=== PATIENT | male | born 1960 | race Caucasian/White ===

== ENCOUNTER 2021-06-27 09:18 | Emergency (ER) | payer OTHER ==
[~2021-06-27] VITALS: Ht 180.3 cm; Wt 65.9 kg
[2021-06-27] MEDS ORDERED: DILT180C70 (09:40)
[2021-06-27] MEDS ORDERED: ATOR1TAB21 (09:40)
--- NOTE | 2021-06-27 11:48 | REP ---
INDICATION: right groin pain r/o hernia. COMPARISON: None. TECHNIQUE: Real-time sonographic evaluation of inguinal regions performed. FINDINGS: There is a small non reducible fat containing right inguinal hernia extending into the proximal inguinal canal. No bowel is seen in the hernia sac. The defect is 15 mm at rest and 17 mm with Valsalva maneuver. No left inguinal hernia is seen. IMPRESSION: Small fat containing non reducible right inguinal hernia extending into the proximal right inguinal canal. No left inguinal hernia. <Electronically signed by Shaheed Baldwin > 06/27/21 1145
[2021-06-27] MEDS ORDERED: diltiaZEM **CD** 180 MG CAP PO ONE (12:15)
[2021-06-27 12:41] VITALS: BP 190/100
[2021-06-27 13:00] VITALS: BP 190/98
== END 2021-06-27 13:27 | disposition home or self-care (01) ==
LOC: M ED 09:18
DX: K40.30 Unilateral inguinal hernia, with obstruction, without gangrene, not specified as recurrent (principal); I10 Essential (primary) hypertension; E78.5 Hyperlipidemia, unspecified; J44.9 Chronic obstructive pulmonary disease, unspecified; F17.200 Nicotine dependence, unspecified, uncomplicated

== ENCOUNTER → 2021-10-27 | Outpatient (CLI) | payer BC ==
[~2021-10-27] MED LIST: ATOR1TAB21; DILT180C70; TIOT18INH INH
--- NOTE | 2021-10-27 10:46 | REP ---
INDICATION: HIGH BLOOD PRESSURE. COMPARISON: No comparison chest x-ray. TECHNIQUE: Two views.. FINDINGS: The lungs are somewhat hyperinflated consistent with some degree of COPD. The pleural angles are sharp. Heart size is normal. There is a irregular opacity in the right lung apex which has somewhat nodular features possibly even cavitary changes. In addition, there is a pleural based spiculated opacity in the left mid lung zone. Neoplastic pulmonary disease should be excluded. Recommend chest CT, preferably with IV contrast. There are old healed rib fractures on the right. No acute bony abnormality is seen. Vascular calcification is seen in the distribution of the carotid arteries bilaterally in the soft tissues of the neck. IMPRESSION: Abnormal nodular opacity right lung apex and left mid lung zone. Recommend, preferably with IV contrast. Chest CT <Electronically signed by Pavel Thomas > 10/27/21 1046
[2021-10-27 11:12] LABS: HEMOGLOBIN 13.5 g/dl (13.5-17.5); MEAN CORPUSCULAR HEMOGLOBIN 33.3 pg (27.0-33.0); MEAN CORPUSCULAR HGB CONC 32.9 g/dl (32.0-36.5); MEAN CORPUSCULAR VOLUME 101.2 fl (80.0-96.0); PLATELET COUNT, AUTOMATED 346 10^3/uL (150-450); RED BLOOD COUNT 4.05 10^6/uL (4.30-6.10); WHITE BLOOD COUNT 9.4 10^3/uL (4.0-10.0)
[2021-10-27 11:38] LABS: ALBUMIN 3.7 GM/DL (3.2-5.2); ALT/SGPT 26 U/L (12-78); BILIRUBIN,TOTAL 0.3 MG/DL (0.2-1.0); BLOOD UREA NITROGEN 14 MG/DL (7-18); CALCIUM LEVEL 9.3 MG/DL (8.8-10.2); CARBON DIOXIDE LEVEL 29 MEQ/L (21-32); CHLORIDE LEVEL 102 MEQ/L (98-107); CREATININE FOR GFR 0.95 MG/DL (0.70-1.30); GLOMERULAR FILTRATION RATE > 60.0 (>49); GLUCOSE, FASTING 96 MG/DL (70-100); POTASSIUM SERUM 4.7 MEQ/L (3.5-5.1); SODIUM LEVEL 135 MEQ/L (136-145); TOTAL PROTEIN 8.1 GM/DL (6.4-8.2)
--- NOTE | 2021-10-27 20:03 | ECGEPIP ---
[facility] Test Date: 2021-10-27 Pat Name: SMITH MCKAY Department: Room: - Gender: Male [employer] Supervisor: RF : [id number] Requested By: Raoul Whitmore Order Number: [id number] Reading MD: Baltazar Haynes Measurements Intervals [place] Rate: 88 P: 80 OK: 144 QRS: -33 QRSD: 108 T: 60 QT: 374 QTc: 452 Interpretive Statements Normal sinus rhythm Biatrial enlargement Left axis deviation Nonspecific ST-T wave abnormalities Baseline artifact Comparison tracing not on file Electronically Signed on 10-27-2021 20:03:13 EST by Baltazar Haynes
== END ==
LOC: M RAD 10:05
PROVIDERS: ATTEND Anesthesiology
DX: Z01.818 Encounter for other preprocedural examination (principal); R91.1 Solitary pulmonary nodule; R94.31 Abnormal electrocardiogram [ECG] [EKG]; I10 Essential (primary) hypertension; E78.00 Pure hypercholesterolemia, unspecified; J44.9 Chronic obstructive pulmonary disease, unspecified; Z86.73 Personal history of transient ischemic attack (TIA), and cerebral infarction without residual deficits

== ENCOUNTER → 2021-10-27 | Outpatient (CLI) | payer BC, OTHER | LOC: M LABSMTC 09:35 | PROVIDERS: ATTEND Anesthesiology | DX: Z01.812 Encounter for preprocedural laboratory examination (principal); Z20.822 Contact with and (suspected) exposure to COVID-19 ==

== ENCOUNTER 2021-11-01 14:13 | Day surgery (SDC) | payer BC ==
[~2021-11-01] VITALS: Ht 180.3 cm; Wt 57.6 kg
[~2021-11-01 14:13] MED LIST changes: +LIDOCAINE 1% MDV 20ML VIAL SQ PRN; +LR 1,000 ML IV ONE
[2021-11-01] MEDS ORDERED: ROCURONIUM BROMIDE 50 MG/5 ML VIAL As Ordered ONE (16:33)
[2021-11-01] MEDS ORDERED: SUGAMMADEX SODIUM 500 MG/5 ML VIAL (BRIDION) As Ordered ONE (16:33)
[2021-11-01] MEDS ORDERED: ACETAMINOPHEN 1000MG 100ML IV BTL (OFIRMEV) (J0131 PER 10MG) As Ordered ONE (16:33)
[2021-11-01] MEDS ORDERED: KETOROLAC 60MG 2ML VIAL As Ordered ONE (16:33)
[2021-11-01] MEDS ORDERED: propofoL 200 MG/20 ML VIAL As Ordered ONE (16:33)
[2021-11-01] MEDS ORDERED: ONDANSETRON 4MG/2ML VIAL As Ordered ONE (16:33)
[2021-11-01] MEDS ORDERED: LIDOCAINE 2% 100MG/5ML SDV (FOR ANES.) As Ordered ONE (16:33)
[2021-11-01] MEDS ORDERED: dexameTHASONE 4 MG/ML 1ML VIAL (J1100 PER 1MG) As Ordered ONE (16:33)
[2021-11-01] MEDS ORDERED: MIDAZOLAM INJ 2MG/2ML VIAL (J2250 PER 1MG) As Ordered ONE (16:34)
[2021-11-01] MEDS ORDERED: fentaNYL 100 MCG/2 ML INJECTION As Ordered ONE ×2 (16:34→18:58)
[2021-11-01] MEDS ORDERED: BUPIVACAINE HCL 0.25% 30ML VIAL As Ordered ONE (17:43)
[2021-11-01] MEDS ORDERED: ePHEDrine SULFATE 25 MG/5 ML(5MG/ML) SYRINGE As Ordered ONE (18:24)
[2021-11-01] MEDS ORDERED: METOCLOPRAMIDE INJ 10MG/2ML VIAL (J2765 PER 1) IV PRN (20:00)
[2021-11-01] MEDS ORDERED: ONDANSETRON 4MG/2ML VIAL IV PRN (20:00)
[2021-11-01] MEDS ORDERED: PERCOCET 5MG/325MG TAB PO PRN (20:00)
[2021-11-01] MEDS ORDERED: LR 1,000 ML IV SCH (20:00)
[2021-11-01] MEDS ORDERED: fentaNYL 100 MCG/2 ML INJECTION IV PRN (20:00)
[2021-11-01 20:25] VITALS: BP 177/88
== END 2021-11-01 21:23 | disposition home or self-care (01) ==
LOC: M SDC 14:13
PROVIDERS: ATTEND Surgery
DX: K40.90 Unilateral inguinal hernia, without obstruction or gangrene, not specified as recurrent (principal); I10 Essential (primary) hypertension; E78.5 Hyperlipidemia, unspecified; Z86.73 Personal history of transient ischemic attack (TIA), and cerebral infarction without residual deficits; J44.9 Chronic obstructive pulmonary disease, unspecified; R06.83 Snoring; R06.02 Shortness of breath; F17.210 Nicotine dependence, cigarettes, uncomplicated; Z79.899 Other long term (current) drug therapy
CPT/HCPCS: 49650; C1781; J0131; J1100; J1885; J2250; J2405; J3010; S2900

== ENCOUNTER → 2021-11-21 | Outpatient (CLI) | payer BC ==
[~2021-11-21] MED LIST changes: +ISOVUE-370 76% 100ML VIAL ONE; -LIDOCAINE 1% MDV 20ML VIAL SQ PRN; -LR 1,000 ML IV ONE
--- NOTE | 2021-11-21 10:15 | REP ---
INDICATION: OTHER NON SPECIFIC ABDNORMAL FINDING OF LUNG FIELD COMPARISON: There are no prior CTs for comparison. Previous plain film examination of the chest 11/06/2021 reviewed. TECHNIQUE: Standard helical technique before and after intravenous contrast administration. 100 cc Isovue 370 was administered. FINDINGS: There is an 8 mm sized precarinal lymph node. There is no donta mediastinal or hilar adenopathy. There are no pleural or pericardial effusions. The imaged upper abdomen and imaged osseous structures are within normal limits. Evaluation of the lung craig shows an irregular somewhat spiculated partially centrally calcified 2.7 x 1.7 x 2.8 cm sized nodule in the right lung apex and with some evidence of cavitation. Calcific pleural plaquing is also seen in the right lung apex. There is pleural irregularity with spiculation seen along the lateral pleural surface of the lingula. Overall this area measures approximately 7 x 6.5 x 1.5 cm. There is advanced emphysematous change seen particularly in the apical regions with large pleural blebs. There is evidence of honeycomb lung formation in the lower lobe region bilaterally. IMPRESSION: 1. Abnormal right apical nodule as described above. Infectious versus neoplastic change. Tuberculosis can present itself in this matter. According to the revised Fleischner society criteria PET-CT is recommended at this time since are no priors for comparison. 2. Irregular pleural based soft tissue density in the apical region as described above. This should also be evaluated with PET-CT since there are no priors comparison. 3. Advanced chronic lung field changes as described above. <Electronically signed by Eugene Fallon > 11/21/21 1012
== END ==
LOC: M PLAIMG 08:46
PROVIDERS: ATTEND Surgery
DX: R91.1 Solitary pulmonary nodule (principal); J98.4 Other disorders of lung

== ENCOUNTER → 2022-03-12 | Outpatient (CLI) | payer BC ==
[~2022-03-12] MED LIST changes: -ISOVUE-370 76% 100ML VIAL ONE
== END ==
LOC: M PLAIMG 10:21
PROVIDERS: ATTEND Internal Medicine Pulmonary Disease
DX: R91.8 Other nonspecific abnormal finding of lung field (principal)

== ENCOUNTER → 2022-09-16 | Outpatient (CLI) | payer BC | LOC: M PLAIMG 08:39 | PROVIDERS: ATTEND Internal Medicine Pulmonary Disease | DX: R91.8 Other nonspecific abnormal finding of lung field (principal) ==

== ENCOUNTER → 2023-04-01 | Outpatient (CLI) | payer OTHER | LOC: M RAD 13:53 | PROVIDERS: ATTEND Internal Medicine Pulmonary Disease | DX: R91.8 Other nonspecific abnormal finding of lung field (principal) ==

== ENCOUNTER → 2023-11-11 | Outpatient (CLI) | payer OTHER | LOC: M RAD 16:27 | PROVIDERS: ATTEND Internal Medicine Pulmonary Disease | DX: R91.8 Other nonspecific abnormal finding of lung field (principal) ==

== ENCOUNTER 2024-06-09 07:13 | Observation (INO) | payer OTHER ==
[~2024-06-09] VITALS: Ht 180.3 cm; Wt 54.4 kg
[2024-06-09] VITALS (8 sets, daily range): BP systolic 108–154; BP diastolic 72–79; TEMP 97.3–97.9; O2SAT 93–99
[~2024-06-09 07:13] MED LIST changes: -ATOR1TAB21; +ATOR1TAB21 PO; +BREO1INH INH; -DILT180C70; +DILT180C70 PO
[2024-06-09] MEDS ORDERED: propofoL 500 MG/50 ML VIAL As Ordered ONE (07:40)
[2024-06-09] MEDS ORDERED: ACETAMINOPHEN 1000MG 100ML IV BAG As Ordered ONE (07:41)
[2024-06-09] MEDS ORDERED: MIDAZOLAM INJ 2MG/2ML VIAL As Ordered ONE (07:45)
[2024-06-09] MEDS ORDERED: fentaNYL 100 MCG/2 ML INJECTION As Ordered ONE (07:46)
[2024-06-09] MEDS ORDERED: ROCURONIUM BROMIDE 50MG/5ML VIAL As Ordered ONE (08:30)
[2024-06-09] MEDS ORDERED: PHENYLephrine 500MCG 5ML (100MCG/ML) SYRINGE As Ordered ONE (08:53)
[2024-06-09] MEDS ORDERED: ePHEDrine SULFATE 25 MG/5 ML(5MG/ML) SYRINGE As Ordered ONE (08:53)
[2024-06-09] MEDS ORDERED: ONDANSETRON 4MG 2ML VIAL As Ordered ONE (08:54)
[2024-06-09] MEDS: TRANEXAMIC ACID 100 MG/ML 10ML VIAL As Ordered ONE (08:55)
[2024-06-09] MEDS: ceFAZolin SOD 2 GM in IV 1 EA IV ONE (09:00)
[2024-06-09] MEDS ORDERED: SUGAMMADEX SODIUM 500 MG/5 ML VIAL (BRIDION) As Ordered ONE (09:07)
[2024-06-09] MEDS ORDERED: LIDOCAINE 2% 100MG/5ML SDV (FOR ANES.) As Ordered ONE (09:07)
[2024-06-09] MEDS: VANCOMYCIN 1000MG/20ML VIAL As Ordered ONE (09:44)
[2024-06-09] MEDS: ROPIVA 100MG/KETOR 15MG/EPINEPHRINE 0.3MG IN NS 50ML SYRINGE PA ONE (09:47)
[2024-06-09] MEDS ORDERED: PHENYLEPHRINE 10MG/ML 1ML VIAL As Ordered ONE (09:51)
[2024-06-09] MEDS ORDERED: HYDROmorphone HCL 2MG/ML 1ML VIAL As Ordered ONE (10:39)
[2024-06-09] MEDS ORDERED: KETOROLAC 60MG 2ML VIAL As Ordered ONE (10:51)
[2024-06-09] MEDS ORDERED: fentaNYL 100 MCG/2 ML INJECTION IV PRN (10:55)
[2024-06-09] MEDS ORDERED: ONDANSETRON 4MG 2ML VIAL IV PRN (10:55)
[2024-06-09] MEDS ORDERED: MEPERIDINE 25 MG/ML 1ML VIAL IV PRN (10:55)
[2024-06-09] MEDS ORDERED: oxyCODONE 5MG TAB PO PRN (10:55)
[2024-06-09] MEDS ORDERED: METOCLOPRAMIDE INJ 10MG/2ML VIAL IV PRN (10:55)
[2024-06-09] MEDS: HYDROMORPHONE HCL 0.5 MG/ 0.5 ML SYRINGE IV PRN (11:23)
[2024-06-09] MEDS ORDERED: ALBUTEROL SULFATE 2.5MG/0.5ML INH NEB SOLN NEB PRN (13:45)
[2024-06-09] MEDS ORDERED: HOME MED LIST COMPLETE! XX SCH (13:50)
[2024-06-09] MEDS ORDERED: ACETAMINOPHEN TAB 650MG DOSE (2X325MG) PO PRN (14:00)
[2024-06-09] MEDS: MORPHINE 4 MG/ML 1ML VIAL IV PRN (15:49)
[2024-06-09] MEDS: ceFAZolin SOD 1 GM in D5W MINI-BAG PLUS 50 ML IV SCH (16:19)
[2024-06-09] MEDS: NICOTINE 7 MG/24 HR TRANSDERMAL TD SCH (16:37)
[2024-06-09] MEDS ORDERED: IBUPROFEN 600MG TAB PO PRN (17:00)
[2024-06-09] MEDS: SENOKOT S TAB PO SCH (21:01)
[2024-06-09] MEDS: ATORVASTATIN 20 MG TAB PO SCH (21:02)
[2024-06-09] MEDS: SYMBICORT 80/4.5MCG INHALER 6GM INH SCH (22:27)
[2024-06-09] MEDS: oxyCODONE 5MG TAB PO PRN (22:32)
[2024-06-10 04:06] VITALS: BP 132/77; TEMP 97.3; O2SAT 93
[2024-06-10 07:53] LABS: HEMATOCRIT 33.4 % (42.0-52.0); HEMOGLOBIN 11.3 g/dl (13.5-17.5); MEAN CORPUSCULAR HEMOGLOBIN 33.9 pg (27.0-33.0); MEAN CORPUSCULAR HGB CONC 33.8 g/dl (32.0-36.5); MEAN CORPUSCULAR VOLUME 100.3 fl (80.0-96.0); PLATELET COUNT, AUTOMATED 340 10^3/uL (150-450); RED BLOOD COUNT 3.33 10^6/uL (4.30-6.10); WHITE BLOOD COUNT 17.2 10^3/uL (4.0-10.0)
[2024-06-10 08:07] LABS: BLOOD UREA NITROGEN 13 MG/DL (9-23); CALCIUM LEVEL 9.1 MG/DL (8.3-10.6); CARBON DIOXIDE LEVEL 28 MMOL/L (20-31); CHLORIDE LEVEL 99 MMOL/L (98-107); CREATININE FOR GFR 0.96 MG/DL (0.70-1.30); GLOMERULAR FILTRATION RATE > 60.0 (>49); GLUCOSE, FASTING 120 MG/DL (74-106); POTASSIUM SERUM 4.5 MMOL/L (3.5-5.1); SODIUM LEVEL 131 MMOL/L (136-145)
[2024-06-10 08:10] VITALS: BP 165/88; TEMP 98.1; O2SAT 96
[2024-06-10] MEDS: TIOTROPIUM INHALER/CAPSULE (SPIRIVA) INH SCH (08:35)
[2024-06-10 08:40] VITALS: BP 132/77
[2024-06-10] MEDS: dilTIAZem **CD** 180MG CAP PO SCH (08:40)
[2024-06-10] MEDS ORDERED: ASPI81TA26 PO (11:13)
[2024-06-10] MEDS ORDERED: OXYC1TAB23 PO (11:13)
[2024-06-10] MEDS ORDERED: ENOXAPARIN 40MG/0.4ML SYRINGE (J1650 PER 10MG) SC SCH (12:00)
[2024-06-10 12:15] VITALS: BP 161/90; TEMP 97.9; O2SAT 96
[2024-06-10 12:16] VITALS: TEMP 97.9; O2SAT 98
[2024-06-10] MEDS: OMEPRAZOLE 20MG CAP PO ONE (13:09)
== END 2024-06-10 13:50 | disposition home or self-care (01) ==
LOC: M SDC 07:13 → M RR INP 07:14 → M MS5PR 13:00
PROVIDERS: ADMIT Internal Medicine Nephrology; ATTEND Orthopaedic Surgery Hand Surgery
DX: M16.11 Unilateral primary osteoarthritis, right hip (principal); I10 Essential (primary) hypertension; E78.5 Hyperlipidemia, unspecified; J44.9 Chronic obstructive pulmonary disease, unspecified; F17.218 Nicotine dependence, cigarettes, with other nicotine-induced disorders; Z79.51 Long term (current) use of inhaled steroids; Z79.899 Other long term (current) drug therapy
CPT/HCPCS: 27130; 36415; 72170; 80048; 85027; 88300; 94640; 96365; 96366; 96375; 96376; 97110; 97161; 97165; 97530; 97535; C1776; J0131; J0690; J1100; J1170; J1885; J2250; J2371; J2405; J3010; J3370

== ENCOUNTER → 2024-12-15 | Outpatient (CLI) | payer OTHER ==
[~2024-12-15] MED LIST changes: +ASPI81TA26 PO; +OXYC1TAB23 PO
== END ==
LOC: M RAD 09:21
PROVIDERS: ATTEND Internal Medicine Pulmonary Disease
DX: F17.218 Nicotine dependence, cigarettes, with other nicotine-induced disorders (principal)

== ENCOUNTER → 2024-12-25 | Outpatient (CLI) | payer OTHER | LOC: M RAD 10:26 | PROVIDERS: ATTEND Neuromusculoskeletal Medicine, Sports Medicine | DX: M47.816 Spondylosis without myelopathy or radiculopathy, lumbar region (principal); M48.061 Spinal stenosis, lumbar region without neurogenic claudication; M54.50 Low back pain, unspecified ==

== ENCOUNTER → 2024-12-28 | Outpatient (CLI) | payer OTHER | LOC: M PLARAD 09:01 | PROVIDERS: ATTEND Internal Medicine Pulmonary Disease | DX: R91.1 Solitary pulmonary nodule (principal) | CPT/HCPCS: 78815; A9552 ==

== ENCOUNTER → 2025-01-26 | Outpatient (CLI) | payer OTHER ==
[2025-01-26 14:17] LABS: BASO # 0.1 10^3/uL (0.0-0.2); BASO % 0.6 % (0.0-1.0); EOS % 0.4 % (0.0-3.0); HEMATOCRIT 34.3 % (42.0-52.0); HEMOGLOBIN 11.7 g/dl (13.5-17.5); LYMPH # 2.2 10^3/uL (1.5-5.0); LYMPH % 24.9 % (24.0-44.0); MEAN CORPUSCULAR HEMOGLOBIN 33.8 pg (27.0-33.0); MEAN CORPUSCULAR HGB CONC 34.1 g/dl (32.0-36.5); MEAN CORPUSCULAR VOLUME 99.1 fl (80.0-96.0); MONO # 0.8 10^3/uL (0.0-0.8); MONO % 8.6 % (2.0-8.0); NEUTROPHILS # 5.9 10^3/uL (1.5-8.5); NEUTROPHILS % 65.4 % (36.0-66.0); PLATELET COUNT, AUTOMATED 316 10^3/uL (150-450); RED BLOOD COUNT 3.46 10^6/uL (4.30-6.10)
[2025-01-26 14:56] LABS: ALBUMIN 3.4 G/DL (3.2-5.2); ALKALINE PHOSPHATASE 90 U/L (40-129); ALT/SGPT 13 U/L (7.0-40); AST/SGOT 25 U/L (<34); BILIRUBIN,TOTAL 0.4 MG/DL (0.3-1.2); BLOOD UREA NITROGEN 9 MG/DL (9-23); CALCIUM LEVEL 8.8 MG/DL (8.3-10.6); CARBON DIOXIDE LEVEL 26 MMOL/L (20-31); CHLORIDE LEVEL 98 MMOL/L (98-107); CREATININE FOR GFR 0.83 MG/DL (0.70-1.30); GLOMERULAR FILTRATION RATE > 60.0 (>49); GLUCOSE, FASTING 98 MG/DL (74-106); POTASSIUM SERUM 4.3 MMOL/L (3.5-5.1); SODIUM LEVEL 129 MMOL/L (136-145); TOTAL PROTEIN 6.9 G/DL (5.7-8.2)
== END ==
LOC: M LAB 12:13
PROVIDERS: ATTEND Neuromusculoskeletal Medicine, Sports Medicine
DX: M51.27 Other intervertebral disc displacement, lumbosacral region (principal)

== ENCOUNTER → 2025-02-10 | Outpatient (CLI) | payer OTHER ==
[~2025-02-10] MED LIST changes: +ASCO50TA PO; +ECOT81TA5 PO; +FERR325T82 PO; +VITA100093 PO
== END ==
LOC: M RAD 09:11
PROVIDERS: ATTEND Neuromusculoskeletal Medicine, Sports Medicine
DX: T84.84XA Pain due to internal orthopedic prosthetic devices, implants and grafts, initial encounter (principal); Y83.1 Surgical operation with implant of artificial internal device as the cause of abnormal reaction of the patient, or of later complication, without mention of misadventure at the time of the procedure

== ENCOUNTER 2025-02-22 10:47 | Observation (INO) | payer OTHER ==
[~2025-02-22] VITALS: Ht 180.3 cm; Wt 54.6 kg
[2025-02-22] MEDS ORDERED: HOME MED LIST COMPLETE! XX SCH (11:45)
[2025-02-22] MEDS: LR 1,000 ML IV SCH (11:46)
[2025-02-22] MEDS ORDERED: fentaNYL 100 MCG/2 ML INJECTION As Ordered ONE (11:51)
[2025-02-22] MEDS ORDERED: propofoL 200 MG/20 ML VIAL As Ordered ONE (11:51)
[2025-02-22] MEDS ORDERED: LIDOCAINE 2% 100MG/5ML SDV (FOR ANES.) As Ordered ONE (11:51)
[2025-02-22] MEDS ORDERED: MIDAZOLAM INJ 2MG/2ML VIAL As Ordered ONE (11:52)
[2025-02-22] MEDS: ceFAZolin SOD 2 GM IV ONCE IV ONE (13:08)
[2025-02-22] MEDS: TRANEXAMIC ACID 100 MG/ML 10ML VIAL As Ordered ONE (13:15)
[2025-02-22] MEDS ORDERED: ACETAMINOPHEN 1000MG/100ML IV BAG As Ordered ONE (13:28)
[2025-02-22] MEDS ORDERED: KETAMINE HCL 200MG/20ML VIAL As Ordered ONE (13:31)
[2025-02-22] MEDS ORDERED: HYDROmorphone HCL 2MG/ML 1ML VIAL As Ordered ONE (14:16)
[2025-02-22] MEDS ORDERED: ROCURONIUM BROMIDE 50MG/5ML VIAL As Ordered ONE (14:32)
[2025-02-22] MEDS: VANCOMYCIN 1000MG/20ML VIAL As Ordered ONE (16:15)
[2025-02-22] MEDS: MORPHINE 10 MG/ML 1ML VIAL As Ordered ONE (16:24)
[2025-02-22] MEDS: BUPivacaine LIPOSOME/PF 266MG 20ML VIAL (13.3MG/ML)(EXPAREL) As Ordered ONE (16:24)
[2025-02-22] MEDS: KETOROLAC 30 MG/ML 1ML VIAL As Ordered ONE (16:24)
[2025-02-22] MEDS ORDERED: SUGAMMADEX SODIUM 500 MG/5 ML VIAL (BRIDION) As Ordered ONE (16:57)
[2025-02-22] MEDS: ceFAZolin SODIUM 2 GM VIAL As Ordered ONE (17:00)
[2025-02-22] MEDS: ONDANSETRON 4MG 2ML VIAL IV PRN (17:21)
[2025-02-22] MEDS: oxyCODONE 5MG TAB PO PRN ×2 (17:22→21:36)
[2025-02-22] MEDS: fentaNYL 100 MCG/2 ML INJECTION IV PRN (17:23)
[2025-02-22] MEDS ORDERED: ACETAMINOPHEN 325 MG TAB PO PRN (17:25)
[2025-02-22] MEDS ORDERED: IPRATROPIUM 0.5MG/ALBUTEROL 2.5MG INH SOL UD 3ML NEB PRN (17:30)
[2025-02-22] MEDS ORDERED: MIRALAX *UNIT DOSE* 17GM PACKET PO PRN (17:35)
[2025-02-22] MEDS ORDERED: SENNA 8.6 MG TAB (SENOKOT) PO PRN (17:35)
[2025-02-22] MEDS ORDERED: ONDANSETRON 4MG 2ML VIAL IV PRN (17:35)
[2025-02-22] MEDS ORDERED: NICOTINE POLACRILEX 2 MG GUM PO PRN (17:50)
[2025-02-22] MEDS: HYDROMORPHONE HCL 0.5 MG/ 0.5 ML SYRINGE IV PRN (18:05)
[2025-02-22 18:30] VITALS: BP 128/85; TEMP 97.3; O2SAT 99
[2025-02-22 19:00] VITALS: BP 130/85; TEMP 97.7; O2SAT 100
[2025-02-22 20:00] VITALS: BP 92/68; TEMP 97.3; O2SAT 100
[2025-02-22 21:00] VITALS: BP 103/69; TEMP 97.7; O2SAT 98
[2025-02-22] MEDS: ceFAZolin SODIUM 2 GM in DEXTROSE 5% (D5W) ADV/MINI-BAG 50 ML IV SCH (21:36)
[2025-02-22] MEDS: NICOTINE 14 MG/24 HR TRANSDERMAL TD SCH (21:36)
[2025-02-22] MEDS: ATORVASTATIN 20 MG TAB PO SCH (21:36)
[2025-02-22 22:00] VITALS: BP 108/69; TEMP 97.7; O2SAT 99
[2025-02-22 23:00] VITALS: BP 103/48; TEMP 97.3; O2SAT 94
[2025-02-23 03:00] VITALS: BP 117/82; TEMP 97.5; O2SAT 99
[2025-02-23 06:52] VITALS: BP 120/79; TEMP 97.7; O2SAT 98
[2025-02-23 06:52] LABS: HEMATOCRIT 29.3 % (42.0-52.0); HEMOGLOBIN 10.1 g/dl (13.5-17.5); MEAN CORPUSCULAR HEMOGLOBIN 34.1 pg (27.0-33.0); MEAN CORPUSCULAR HGB CONC 34.5 g/dl (32.0-36.5); PLATELET COUNT, AUTOMATED 198 10^3/uL (150-450); RED BLOOD COUNT 2.96 10^6/uL (4.30-6.10); WHITE BLOOD COUNT 14.6 10^3/uL (4.0-10.0)
[2025-02-23 06:59] LABS: INR 0.89; PROTHROMBIN TIME 12.4 SECONDS (12.5-14.5)
[2025-02-23 07:22] LABS: ALBUMIN 2.8 G/DL (3.2-5.2); ALKALINE PHOSPHATASE 73 U/L (40-129); ALT/SGPT 11 U/L (7.0-40); AST/SGOT 22 U/L (<34); BILIRUBIN,TOTAL 0.4 MG/DL (0.3-1.2); BLOOD UREA NITROGEN 11 MG/DL (9-23); CALCIUM LEVEL 8.5 MG/DL (8.3-10.6); CARBON DIOXIDE LEVEL 27 MMOL/L (20-31); CHLORIDE LEVEL 95 MMOL/L (98-107); CREATININE FOR GFR 0.87 MG/DL (0.70-1.30); GLOMERULAR FILTRATION RATE > 60.0 (>49); GLUCOSE, FASTING 172 MG/DL (74-106); PHOSPHORUS LEVEL 3.6 MG/DL (2.4-5.1); POTASSIUM SERUM 4.4 MMOL/L (3.5-5.1); SODIUM LEVEL 128 MMOL/L (136-145)
[2025-02-23 08:09] LABS: OSMOLALITY SERUM 276 MOSM/KG (280-301)
[2025-02-23 08:35] VITALS: BP 115/67
[2025-02-23] MEDS: dilTIAZem **CD** 180MG CAP PO SCH (08:35)
[2025-02-23] MEDS: ASPIRIN 81MG ENTERIC TABLET PO SCH (08:35)
[2025-02-23 08:56] LABS: APPEARANCE, URINE HAZY (CLEAR); BACTERIA, URINE AUTO NEGATIVE (NEGATIVE); BILIRUBIN, URINE AUTO NEGATIVE (NEGATIVE); BLOOD, URINE BLOOD NEGATIVE (NEGATIVE); COLOR, URINE YELLOW (YELLOW); GLUCOSE, URINE (UA) AUTO 1+ mg/dL (NEGATIVE); KETONE, URINE AUTO NEGATIVE (NEGATIVE); LEUKOCYTE ESTERASE, URINE AUTO 3+ (NEGATIVE); MUCUS, URINE SMALL (NEGATIVE); NITRITE, URINE AUTO NEGATIVE (NEGATIVE); PROTEIN, URINE AUTO NEGATIVE (NEGATIVE); RBC, URINE AUTO 3 /HPF (0-3); SPECIFIC GRAVITY URINE AUTO 1.017 (1.002-1.035); SQUAMOUS EPITHELIAL CELL UR AU 0 /HPF (0-6); UROBILINOGEN, URINE AUTO 0.2 mg/dL (0.0-2.0); WBC, URINE AUTO 70 /HPF (0-3)
[2025-02-23] MEDS: ADVAIR HFA 115/21MCG INHALER INH SCH (08:58)
[2025-02-23] MEDS: TIOTROPIUM BROM 2.5MCG/ACTUATION 4GM INH IH SCH (08:59)
[2025-02-23] MEDS ORDERED: SODIUM CHLORIDE 1 GM TAB PO SCH (09:00)
[2025-02-23 09:18] LABS: SODIUM,RANDOM URINE 12 MMOL/L
[2025-02-23] MEDS: SODIUM CHLORIDE 1 GM TAB PO SCH (09:48)
[2025-02-23 12:00] VITALS: BP 124/68; TEMP 98.2; O2SAT 99
[2025-02-23] MEDS ORDERED: OXYC-517 PO (16:21)
[2025-02-23] MEDS ORDERED: ASPI81TAEC PO (16:21)
[2025-02-23] MEDS ORDERED: SODI1TAB6 PO (16:21)
[2025-02-23] MEDS ORDERED: NICO14PA TD (16:21)
[2025-02-23] MEDS ORDERED: ACET32TAB PO (16:21)
[2025-02-23] MEDS ORDERED: NICO2GUM PO (16:21)
[2025-02-23] MEDS ORDERED: SENO8.6T5 PO (16:21)
[2025-02-23] MEDS ORDERED: MIRA33506 PO (16:21)
== END 2025-02-23 17:15 | disposition home or self-care (01) ==
LOC: M SDC 10:47 → EDSTATUS 12:30 → M RR INP 17:25 → INTOOBSV 17:25 → M MS5PR 18:25
PROVIDERS: ADMIT Student in an Organized Health Care Education/Training Program; ATTEND Student in an Organized Health Care Education/Training Program
DX: T84.84XA Pain due to internal orthopedic prosthetic devices, implants and grafts, initial encounter (principal); Y79.2 Prosthetic and other implants, materials and accessory orthopedic devices associated with adverse incidents; M25.551 Pain in right hip; M16.11 Unilateral primary osteoarthritis, right hip; Z68.1 Body mass index [BMI] 19.9 or less, adult; R06.83 Snoring; J44.9 Chronic obstructive pulmonary disease, unspecified; E78.5 Hyperlipidemia, unspecified; I10 Essential (primary) hypertension; D72.829 Elevated white blood cell count, unspecified; E87.0 Hyperosmolality and hypernatremia; Z79.899 Other long term (current) drug therapy; Z79.51 Long term (current) use of inhaled steroids; F17.200 Nicotine dependence, unspecified, uncomplicated
CPT/HCPCS: 27134; 36415; 72170; 73502; 80053; 80069; 81001; 83930; 83935; 84300; 85027; 85610; 87070; 93005; 94640; 96374; 96376; C1713; C1776; J0131; J0665; J0666; J0690; J1100; J1171; J1885; J2250; J2405; J3010; J3370

== ENCOUNTER → 2025-03-10 | Outpatient (CLI) | payer OTHER ==
[~2025-03-10] MED LIST changes: +ACET32TAB PO; +ASPI81TAEC PO; +MIRA33506 PO; +NICO14PA TD; +NICO2GUM PO; +OXYC-517 PO; +SENO8.6T5 PO; +SODI1TAB6 PO
== END ==
LOC: M SOG 07:58
PROVIDERS: ATTEND Physician Assistant
DX: M16.11 Unilateral primary osteoarthritis, right hip (principal)

== ENCOUNTER → 2025-06-03 | Outpatient (CLI) | payer OTHER | LOC: M SOG 07:21 | PROVIDERS: ATTEND Neuromusculoskeletal Medicine, Sports Medicine | DX: Z96.641 Presence of right artificial hip joint (principal) ==

== ENCOUNTER → 2025-06-14 | Outpatient (REF) | LOC: M PLAIMG 15:40 | PROVIDERS: ATTEND Internal Medicine | DX: R52 Pain, unspecified (principal) ==